=== PATIENT | female | born 1960 | race Caucasian/White ===

== ENCOUNTER 2020-08-28 19:01 | Inpatient (IN) | payer OTHER ==
[~2020-08-28] VITALS: Ht 170.2 cm; Wt 64.8 kg
--- NOTE | 2020-08-28 19:08 | NUR ---
ER AT BEDSIDE
--- NOTE | 2020-08-28 19:09 | NUR ---
PT AAOX4. BIBRA HX OF HTN, SCIATICA, AND NON SPECIFIC PSYCH. PER PT R FOOT BECAME WEAK AROUND 1300 TODAY. PT ABLE TO RAISE L FOOT AND L ARM WITH NO DRIFT. PT NOT ABLE TO RAISE R LEG. SHE IS ABLE TO RAISE R ARM BUT HAS A DRIFT. NO OTHER NEURO DEFICIT.
--- NOTE | 2020-08-28 19:24 | NUR ---
Code stroke called by Dr. Daniel
--- NOTE | 2020-08-28 19:24 | NUR ---
CODE STROKE ACTIVATED
--- NOTE | 2020-08-28 19:25 | NUR ---
BROUGHT TO CT
--- NOTE | 2020-08-28 19:25 | NUR ---
PT TRANSPORTED TO RADIOLOGY FOR CT.
[2020-08-28] MEDS ORDERED: IOHEXOL-350 100 ML VIAL IV ONE (19:29)
[2020-08-28] MEDS ORDERED: CT SWABBABLE VALVE TRANS SET 1 EA INFUS.SET MC ONE (19:30)
[2020-08-28] MEDS ORDERED: IV NS 0.9% 250 ML IV ONE (19:30)
--- NOTE | 2020-08-28 19:33 | NUR ---
ESMER ZULUAGA TALKING TO DR. RUSH (RADIOLOGIST) REGARDING PT.
--- NOTE | 2020-08-28 19:38 | NUR ---
BACK FROM CT
--- NOTE | 2020-08-28 19:38 | NUR ---
PT BACK FROM CT.
[2020-08-28 19:45] LABS: CALCIUM, SERUM 9.4 mg/dL (8.5-10.1); CARBON DIOXIDE 27 mmol/L (21-32); CHLORIDE 101 mmol/L (98-107); CREATININE 0.9 mg/dL (0.6-1.3); GLUCOSE 112 mg/dL (74-106); POTASSIUM 3.8 mmol/L (3.5-5.1); SODIUM SERUM 137 mmol/L (136-145); UREA NITROGEN, BLOOD 21 mg/dL (7-18)
--- NOTE | 2020-08-28 19:49 | NUR ---
XRAY AT BEDSIDE.
[2020-08-28 19:51] LABS: BASOPHILS % (AUTO) 0.8 % (0.0-2.0); EOSINOPHILS % (AUTO) 1.7 % (0.0-6.0); HEMATOCRIT 47 % (33-45); HEMOGLOBIN 15.3 g/dL (11.5-14.8); LYMPHOCYTES # (AUTO) 1.7 /CMM (0.8-4.8); LYMPHOCYTES % (AUTO) 28.9 % (20.0-44.0); MEAN CORPUSCULAR HGB CONC 32 g/dl (31.0-36.0); MEAN CORPUSCULAR VOLUME 82 fL (82-100); MONOCYTES # (AUTO) 0.6 /CMM (0.1-1.30); MONOCYTES % (AUTO) 9.8 % (2.0-12.0); NEUTROPHILS # (AUTO) 3.4 /CMM (1.8-8.9); NEUTROPHILS % (AUTO) 58.8 % (43.0-81.0); PLATELET COUNT (AUTO) 181 /CMM (150-450); RED BLOOD CELL COUNT(AUTO) 5.73 MIL/uL (4.0-5.2); WHITE BLOOD COUNT (AUTO) 5.7 K/uL (4.3-11.0)
[2020-08-28 19:53] LABS: CHOLESTEROL 203 mg/dL (<200); HDL CHOLESTEROL 56 mg/dL (40-60); TRIGLYCERIDES 94 mg/dL (30-150)
[2020-08-28 19:54] LABS: LDL 130 mg/dL (0-99)
--- NOTE | 2020-08-28 19:58 | NUR ---
TELE NEUROLOGY ACTIVATED 1950. DR INGRAM SPEAKING TO PT. STATED SHE IS NOT TPA CANDIDATE.
--- NOTE | 2020-08-28 20:30 | NUR ---
HESHAM DUARTE AT BEDSIDE SPEAKING TO PT REGARDING PLAN OF CARE.
[2020-08-28] MEDS ORDERED: ACETAMINOPHEN ES 500 MG TABLET ONE (20:59)
[2020-08-28] MEDS ORDERED: hydrALAZINE HCL IV 20 MG VIAL IV PRN (22:30)
[2020-08-28] MEDS ORDERED: ENOXAPARIN SODIUM 40 MG/0.4 ML DISP.SYRIN SQ SCH (22:30)
[2020-08-28] MEDS ORDERED: HYDROCODONE/APAP 5/325MG TABLET PO PRN (22:30)
--- NOTE | 2020-08-28 23:36 | NUR ---
TELE 307-2
--- NOTE | 2020-08-28 23:43 | NUR ---
REPORT GIVEN TO RN FOR MICHAEL
[2020-08-28 23:55] VITALS: BP 142/89
--- NOTE | 2020-08-29 | NUR ---
MS PUPPET DEVELOPER NOTES (3 WEST) At 0000 patient arrived on the unit. Report received by ER staff. 2 police officers accompany patient. Patient A&Ox4. VS WNL. In stable condition. Mild RUE weakness noted and severe RLE weakness noted. Pupils equal and reactive to light. Able to follow commands. Nursing swallowing screen completed. Heart rate and rhythm regular. Lung sounds clear x4 quadrants. Abdomen soft, non-distended with bowel sounds active x4 quadrants. Extremities appear well perfused. Cap refill <3 seconds. Skin turgor <3 seconds. Patient oriented to bed control, call system, unit and protocols.
--- NOTE | 2020-08-29 00:03 | NUR ---
PT TRANSFERED PER ACLS PROTOCOL
[2020-08-29] MEDS: BLOOD SUGAR DIAGNOSTIC 1 EACH STRIP IN SCH ×5 (00:28→11:02)
[2020-08-29] MEDS ORDERED: ASPIRIN 325 MG TABLET PO ONE (03:00)
--- NOTE | 2020-08-29 03:07 | NUR ---
MS LÓPEZ NOTES At 0240 Received order from GERALD Bhandari for Aspirin 325mg one time only-NOW. Given as ordered. Addendum: 08/29/20 at 0617 by GEORGETTE ROBERTS RN Correction* patient is TELE
[2020-08-29 04:00] VITALS: BP 144/97
--- NOTE | 2020-08-29 06:06 | NUR ---
MS RENE CLOSING NOTES Patient is A&Ox4. VSS. No temperature noted, but patient does report feeling like she is having "hot flashes" that go away and come back. Room temperature lowered for comfort. R sided weakness persists. HR sinus rhythm throughout the night, high 60-low 70s. No hypo or hyperglycemic reactions noted. Neurochecks WNL besides RUE and RLE weakness. Will endorse to next shift. Addendum: 08/29/20 at 0618 by GEORGETTE ROBERTS RN Correction *Patient is tele
[2020-08-29 06:18] LABS: CALCIUM, SERUM 9.3 mg/dL (8.5-10.1); POTASSIUM 3.7 mmol/L (3.5-5.1)
[2020-08-29 06:20] LABS: BASOPHILS % (AUTO) 0.9 % (0.0-2.0); EOSINOPHILS % (AUTO) 2.3 % (0.0-6.0); HEMATOCRIT 45 % (33-45); HEMOGLOBIN 14.4 g/dL (11.5-14.8); LYMPHOCYTES # (AUTO) 2.2 /CMM (0.8-4.8); LYMPHOCYTES % (AUTO) 43.1 % (20.0-44.0); MEAN CORPUSCULAR HGB CONC 32 g/dl (31.0-36.0); MEAN CORPUSCULAR VOLUME 82 fL (82-100); MONOCYTES # (AUTO) 0.6 /CMM (0.1-1.30); MONOCYTES % (AUTO) 11.4 % (2.0-12.0); NEUTROPHILS # (AUTO) 2.1 /CMM (1.8-8.9); NEUTROPHILS % (AUTO) 42.3 % (43.0-81.0); PLATELET COUNT (AUTO) 174 /CMM (150-450); RED BLOOD CELL COUNT(AUTO) 5.43 MIL/uL (4.0-5.2)
--- NOTE | 2020-08-29 07:20 | NUR ---
ASSEMBLER [employer] TURBINE OPENING NOTES RECEIVED PATIENT RESTING IN BED. PATIENT IS A/O X4. PATIENT IS BREATHING EVENLY AND NONLABORED ON ROOM AIR. NO SIGNS OF DISTRESS NOTED. PATIENT IS SINUS RHYTHM ON THE MONITOR IN THE 70'S. PATIENT HAS RIGHT SIDED WEAKNESS. SKIN INTACT CLEAN AND DRY. PATIENT HAS IV ACCESS ON LAC #18 AND RAC # 18 SL. IV ACCESS IS PATENT AND INTACT. SAFETY MEASURES ARE IN PLACE. BED LOW LOCKED, CALL LIGHT WITHIN REACH. WILL CONTINUE TO MONITOR
[2020-08-29] MEDS ORDERED: PANTOPRAZOLE 40 MG TABLET.DR PO SCH (07:30)
[2020-08-29 08:00] VITALS: BP 121/80
[2020-08-29] MEDS ORDERED: ASPIRIN EC 325 MG TABLET.DR PO SCH (09:00)
[2020-08-29] MEDS ORDERED: CLOPIDOGREL BISULFATE 75 MG TABLET PO SCH (09:00)
[2020-08-29] MEDS ORDERED: ASPIRIN EC 81 MG TABLET.DR PO SCH (09:00)
[2020-08-29] MEDS ORDERED: HYDR25TA4 PO (09:13)
[2020-08-29] MEDS ORDERED: AMOX500C2 PO (09:13)
[2020-08-29] MEDS ORDERED: IBUP-1957 PO (09:13)
--- NOTE | 2020-08-29 10:40 | NUR ---
RN NOTES POLICE OFFICERS LEAVING BEDSIDE. STATED PATIENT WAS BEING RELEASED FROM THEIR CUSTODY AND THAT PATIENT COULD GO HOME AFTER DISCHARGE FROM THE HOSPITAL. PATIENT THOUGHT SHE WAS GOING HOME AND REMOVED BOTH LAC AND RAC # 18. NOTIFIED, NO IV ACCESS AT THIS TIME. NO IV MEDICATIONS DUE. WILL CONTINUE TO MONITOR
--- NOTE | 2020-08-29 11:04 | NUR ---
RN NOTES ACCUCHECK DONE GLUCOSE @ 94. WILL CONTINUE TO MONITOR
[2020-08-29] MEDS ORDERED: ASPI-1420 PO (12:28)
[2020-08-29] MEDS ORDERED: CLOP75TA15 PO (12:28)
[2020-08-29] MEDS ORDERED: SIMV-46 PO (12:28)
--- NOTE | 2020-08-29 15:53 | NUR ---
BACK TACKER NOTE RECEIVED ORDER FOR DISCHARGE. PATIENT IS A/O X4. PATIENT IS BREATHING EVENLY AND NONLABORED ON ROOM AIR. NO SIGNS OF DISTRESS NOTED. PATIENT'S SKIN INTACT CLEAN AND DRY. PATIENT HAS IV ACCESS WAS REMOVED EARLIER THIS MORNING. ID BAND REMOVED. DISCHARGE INSTRUCTIONS WERE GIVEN BOTH ORALLY AND WRITTEN. PATIENT VERBALIZED UNDERSTANDING. PATIENT LEFT VIA TAXI IN STABLE CONDITION.
[2020-08-29] MEDS ORDERED: SIMVASTATIN 20 MG TABLET PO SCH (22:00)
--- NOTE | 2020-08-31 11:34 | NUR ---
SS Consult requested for Stroke on 08/28/2020. SW available until today and pt. was discharged on 08/29.
== END 2020-08-29 15:40 | disposition home or self-care (01) | DRG 66 ==
LOC: ER 19:06 → TELE 23:46 → MED 08-29 11:01
PROVIDERS: ADMIT Nurse Practitioner Acute Care; ATTEND Nurse Practitioner Acute Care
DX: I63.9 Cerebral infarction, unspecified (principal); I10 Essential (primary) hypertension; M54.30 Sciatica, unspecified side; E78.5 Hyperlipidemia, unspecified; R79.89 Other specified abnormal findings of blood chemistry; G89.29 Other chronic pain; F17.210 Nicotine dependence, cigarettes, uncomplicated; F14.90 Cocaine use, unspecified, uncomplicated; R29.703 NIHSS score 3
CPT/HCPCS: 36415; 70450-TC; 70496-TC; 70498-TC; 71045-TC; 80048-TC; 80061-TC; 82962-TC; 84484-TC; 85025-TC; 85730-TC; 87081-TC; 93307-TC; 93880-TC; 97116-TC; 97530-TC; C9803; G0378; J1650; J7050; Q9967